=== PATIENT | female | born 1965 | race American Indian/Alaskan Native ===

== ENCOUNTER 2019-06-13 13:02 | Outpatient (CLI) | payer BC ==
--- NOTE | 2019-06-13 13:51 | XRay Report ---
CHEST 2 VIEWS INDICATION: COUGH/WHEEZING. History of right breast cancer status post right partial mastectomy and radiation the rapy. COMPARISON: None. FINDINGS: Support devices: A right [id number] tip is in the SVC. Heart: The heart is large. Pulmonary vasculature: Mildly enlarged and indistinct. Lungs/pleura: The left lung base is opacified and there is large widening of the left pleural space. Numerous small subtle right upper lobe and right lower lobe nodular opacities possible left upper lob e nodular opacities as well. No pneumothorax. Additional findings: No suspicious bone lesions bone lesions. IMPRESSION: 1. A large left pleural effusion and numerous multilobar small lung opacity suspicious for pulmonary metastases. 2. Cardiomegaly but no CHF. Signer Name: Eyal Knutson MD Signed: 06/13/2019 1:47 PM Workstation Name: [id number]
== END 2019-06-13 13:03 | disposition home or self-care (01) ==
LOC: SPVIMAG 13:02
PROVIDERS: ATTEND Internal Medicine Hematology & Oncology
DX: C50.411 Malignant neoplasm of upper-outer quadrant of right female breast (principal); I51.7 Cardiomegaly; J90 Pleural effusion, not elsewhere classified; F17.210 Nicotine dependence, cigarettes, uncomplicated; Z98.890 Other specified postprocedural states; Z90.710 Acquired absence of both cervix and uterus; K21.9 Gastro-esophageal reflux disease without esophagitis
CPT/HCPCS: 71046